=== PATIENT | male | born 1950 | race Caucasian/White ===

== ENCOUNTER → 2017-01-17 | Outpatient (CLI) | payer BC | END | disposition home or self-care (01) | LOC: GMAH 10:25 | PROVIDERS: ATTEND Family Medicine | DX: Z12.5 Encounter for screening for malignant neoplasm of prostate (principal); E78.2 Mixed hyperlipidemia ==

== ENCOUNTER 2017-08-11 16:06 | Emergency (ER) | payer BC, MEDICARE ==
[2017-08-11 16:20] VITALS: BP 160/84; TEMP 97.2; O2SAT 98
[2017-08-11] MEDS ORDERED: CYCLOBENZAPRINE HCL 10 MG TAB PO ONE (16:34)
[2017-08-11] MEDS ORDERED: predniSONE 20 MG TAB PO ONE (16:34)
--- NOTE | 2017-08-11 16:37 | ED.PDOC ---
History of Present Illness - General Chief Complaint: Upper Extremity Injury Stated Complaint: left shoulder pain Time Seen by Provider: 08/11/17 16:12 Source: patient Exam Limitations: no limitations - History of Present Illness Initial Comments: the patient is 66-year-old male presenting to the emergency room secondary to left knee pain and left shoulder pain after he tripped and fell while walking his dog yesterday.there is no significant deformity at either joint. The laceration. No crepitus. He has mild tenderness to palpation over the medial collateral ligament. He also has discomfort with active flexion and abduction at the shoulder. Passive range of motion causes minimal pain. Knee appears stable. He is neurovascularly intact in both extremities. Timing/Duration: 24 hours Severity: moderate Improving Factors: nothing Worsening Factors: nothing Associated Symptoms: denies symptoms Allergies/Adverse Reactions: Allergies NO KNOWN ALLERGY Allergy (Verified 08/11/17 16:20) Home Medications: Ambulatory Orders Zuashdxoaqxxm-Itwv-Ckclaoghot [Fioricet] 1 ea PO Q8H PRN #21 tab 08/11/17 Cyclobenzaprine HCl [Flexeril] 5 mg PO TID PRN #30 tab 08/11/17 Simvastatin 20 mg PO DAILY 08/11/17 predniSONE [Prednisone] 20 mg PO DAILY #5 tab 08/11/17 Review of Systems - Review of Systems Constitutional: States: no symptoms reported EENTM: States: no symptoms reported Respiratory: States: no symptoms reported Cardiology: States: no symptoms reported Gastrointestinal/Abdominal: States: no symptoms reported Genitourinary: States: no symptoms reported Musculoskeletal: States: see HPI Skin: States: no symptoms reported Neurological: States: no symptoms reported Endocrine: States: no symptoms reported All other Systems: No Change from Baseline Past Medical History (General) - Patient Medical History Hx Stroke: No Hx Congestive Heart Failure: No Hx Diabetes: No - Vaccination History Hx Influenza Vaccination: No Hx Pneumococcal Vaccination: No - Social History Hx Tobacco Use: No Family Medical History - Family History Father Family History: Unknown Living Status: Unknown Physical Exam - Physical Exam General Appearance: Alert, Comfortable, No apparent distress Eye Exam: bilateral normal Ears, Nose, Throat: hearing grossly normal Neck: full range of motion, supple Respiratory: no respiratory distress, no accessory muscle use Cardiovascular/Chest: normal peripheral pulses, no edema, other - regular but mildly bradycardic Peripheral Pulses: radial,right: 2+, radial,left: 2+, dorsalis pedis,right: 2+, dorsalis pedis,left: 2+ Gastrointestinal/Abdominal: non tender, soft Rectal Exam: deferred Back Exam: normal inspection, no CVA tenderness Extremity: no pedal edema, no calf tenderness, normal capillary refill, other - see history of present illness Neurologic: entry level paralegal II-XII nml as tested, no motor/sensory deficits, alert, normal mood/affect, oriented x 3 Skin Exam: normal color Comments: Vital Signs - 24 hr 08/11/17 16:17 Temperature 97.2 F L Pulse Rate [ 50 L Right Brachial] Respiratory 16 Rate Blood Pressure 160/84 [Right Arm] O2 Sat by Pulse 98 Oximetry Progress - Progress Progress: 08/11/17 16:37 the patient is a 66-year-old male presenting to the emergency room after a fall yesterday with what appears to be a left rotator cuff injury and a left MCL strain. He needs to ambulate carefully and avoid twisting with weight on the left lower extremity. He will be placed in a shoulder immobilizer for the next week after which he can start doing range of motion exercises. He needs to follow up with orthopedics in about 3 weeks for reevaluation of both sites. X-rays are not indicated at this time based on clinical exam and history. The patient will be written for Flexeril for as needed use, as well as prednisone for 5 days. He can take dlnl-glb-hmycmiy Aleve twice daily with food to help reduce inflammation as well. He will also be written for some Fioricet for as needed use for pain control for the next week. ER warnings were given for any significant worsening. Ambulate carefully. Departure - Departure Clinical Impression: Knee strain Qualifiers: Encounter type: initial encounter Laterality: left Qualified Code(s): S86.912A - Strain of unspecified muscle(s) and tendon(s) at lower leg level, left leg, initial encounter Rotator cuff (capsule) sprain Qualifiers: Encounter type: initial encounter Laterality: left Qualified Code(s): S43.422A - Sprain of left rotator cuff capsule, initial encounter Disposition: Discharge to Home or Self Care Condition: Fair Departure Forms: ED Discharge - Pt. Copy, Patient Portal Self Enrollment Instructions: DI for Rotator Cuff Injury Diet: regular diet Activity: no exercise Referrals: Ishan Nelson MD [Primary Care Provider] - 1-2 Weeks Prescriptions: Xsplyeigunagk-Gtso-Qfdqvikavt [Fioricet] 1 ea PO Q8H PRN #21 tab PRN Reason: Pain Cyclobenzaprine HCl [Flexeril] 5 mg PO TID PRN #30 tab PRN Reason: Muscle Spasms predniSONE [Prednisone] 20 mg PO DAILY #5 tab Home Medications: Ambulatory Orders Ghwepezmieqkm-Vrmm-Xzzrfgzuks [Fioricet] 1 ea PO Q8H PRN #21 tab 08/11/17 Cyclobenzaprine HCl [Flexeril] 5 mg PO TID PRN #30 tab 08/11/17 Simvastatin 20 mg PO DAILY 08/11/17 predniSONE [Prednisone] 20 mg PO DAILY #5 tab 08/11/17 Additional Instructions: the patient is a 66-year-old male presenting to the emergency room after a fall yesterday with what appears to be a left rotator cuff injury and a left MCL strain. He needs to ambulate carefully and avoid twisting with weight on the left lower extremity. He will be placed in a shoulder immobilizer for the next week after which he can start doing range of motion exercises. He needs to follow up with orthopedics in about 3 weeks for reevaluation of both sites. X-rays are not indicated at this time based on clinical exam and history. The patient will be written for Flexeril for as needed use, as well as prednisone for 5 days. He can take gnlw-pvz-myohnqu Aleve twice daily with food to help reduce inflammation as well. He will also be written for some Fioricet for as needed use for pain control for the next week. ER warnings were given for any significant worsening. Ambulate carefully.
== END 2017-08-11 16:52 | disposition home or self-care (01) ==
LOC: ER 16:06
DX: S86.912A Strain of unspecified muscle(s) and tendon(s) at lower leg level, left leg, initial encounter (principal); S43.422A Sprain of left rotator cuff capsule, initial encounter; W01.0XXA Fall on same level from slipping, tripping and stumbling without subsequent striking against object, initial encounter; Y93.K1 Activity, walking an animal

== ENCOUNTER → 2018-07-09 | Outpatient (CLI) | payer MEDICARE | LOC: GMAH 10:34 | PROVIDERS: ATTEND Family Medicine | DX: E78.2 Mixed hyperlipidemia (principal); Z12.5 Encounter for screening for malignant neoplasm of prostate | CPT/HCPCS: 84443; 84550; G0103 ==

== ENCOUNTER → 2019-01-04 | Outpatient (CLI) | payer MEDICARE ==
--- NOTE | 2019-01-04 13:10 | RAD ---
Procedure: XR CHEST 2 VIEWS Exam Date: 01/04/2019 12:00 AM CDT Ordering Provider: Pauline Parikh Clinical Indication: CHEST PAIN Comparison: None Findings: The lungs are clear and well-aerated. No pleural effusion or pneumothorax. Cardiac silhouette is normal in size. Impression: No acute pulmonary process. Electronically signed by: Denny Scott MD 01/04/2019 1:08 PM CDT
== END ==
LOC: LAB.O 11:35
PROVIDERS: ATTEND Nurse Practitioner Family
DX: R07.89 Other chest pain (principal)

== ENCOUNTER → 2020-04-08 | Outpatient (CLI) | payer MEDICARE ==
--- NOTE | 2020-04-08 11:02 | RAD ---
EXAM DESCRIPTION: Chest,2 Views CLINICAL HISTORY: 69 years Male, cough COMPARISON: January 04, 2019 Findings: Two view(s)/radiograph(s) Cardiac silhouette and pulmonary vasculature are within normal limits. No pneumothorax. No pleural effusion. The right lung is clear. Patchy left upper lobe airspace disease. No acute osseous abnormality. IMPRESSION: Patchy left upper lobe airspace disease; atelectasis or pneumonia. Electronically signed by: Donny Aggarwal MD 04/08/2020 11:00 AM [facility]
== END ==
LOC: YCFC.O 10:05
PROVIDERS: ATTEND Nurse Practitioner
DX: R05 Cough (principal); R91.8 Other nonspecific abnormal finding of lung field